=== PATIENT | female | born 1995 | race Caucasian/White ===

== ENCOUNTER 2017-12-03 16:45 | Emergency (ER) | payer MEDICAID ==
[~2017-12-03] VITALS: Ht 160 cm; Wt 62.0 kg
[2017-12-03] MEDS ORDERED: IBUPROFEN 600MG TABLET PO ONE (17:30)
[2017-12-03 17:32] VITALS: BP 130/78
== END 2017-12-03 20:10 | disposition home or self-care (01) ==
LOC: ER 16:49
DX: S16.1XXA Strain of muscle, fascia and tendon at neck level, initial encounter (principal); S39.012A Strain of muscle, fascia and tendon of lower back, initial encounter; V43.52XA Car driver injured in collision with other type car in traffic accident, initial encounter; Y93.89 Activity, other specified; Y92.89 Other specified places as the place of occurrence of the external cause; Y99.8 Other external cause status
CPT/HCPCS: 72100; 99284; Z7610